=== PATIENT | male | born 1990 | race Caucasian/White ===

== ENCOUNTER 2021-11-18 23:37 | Emergency (ER) | payer MEDICARE, MEDICAID, SELFPAY ==
[2021-11-18 23:44] VITALS: BP 141/79; PULSE 88; RESP 18; TEMP 36.7; O2SAT 100; BMI 32.1
--- NOTE | 2021-11-18 23:49 | ED.C_ITS ---
HPI - Psych General: Chief Complaint: Psychiatric Symptoms Stated Complaint: needs to see someone about his schizophrenia Time Seen by Provider: 11/18/21 23:49 History of Present Illness: 31-year-old male patient comes in today for concerns of intrusive thoughts. Patient reports he does not feel homicidal or suicidal, but does have intrusive thoughts where he feels like he might punch somebody or stab someone with a knife. It has been several days since patient's had a thought like this. Patient reports that these thoughts are often reoccurring but he has been able to control them. Patient at this time is living in a fdc and is to start going to group sessions at [facility] for substance abuse disorder. Patient is waiting to get into [facility] to see a psychiatrist and counselor. Patient does have an appointment to see a substance abuse counselor on . Patient has medication to he takes routinely and is not out of his medicine. Review of Systems General: Reports: 10 or more systems reviewed and unremarkable except in HPI and below Psych: Reports: anxiety PFSH ED PFSH: Medical History (Updated 11/19/21 @ 00:04 by ALPHONSE Sandhu) Psychiatric care Physical Exam Const: COMMON NORMALS: alert GENERAL APPEARANCE: well kempt HENMT: COMMON NORMALS: normocephalic HEAD & SCALP: normocephalic Neck/C-Spine: COMMON NORMALS: full ROM Resp: COMMON NORMALS: normal respiratory effort Neuro: SENSORIUM/ORIENTATION: Yes alert Psych: COMMON NORMALS: speech normal APPEARANCE: Yes well kempt ATTITUDE: Yes calm ACTIVITY/MOTOR BEHAVIOR: Yes appropriate eye contact SPEECH: Yes normal speech MOOD & AFFECT: Yes euthymic mood THOUGHT PROCESS: Circumstantial thought process present THOUGHT CONTENT: No Suicidality present and No Homicidality present ATTENTION/CONCENTRATION: Yes attention grossly intact INSIGHT: Good insight present (Psych) JUDGEMENT: Good judgement present (Psych) Course Vital Signs: Vital signs: Vital Signs Temperature 98.1 F 11/18/21 23:44 Pulse Rate 88 11/18/21 23:44 Respiratory Rate 18 11/18/21 23:44 Blood Pressure 141/79 11/18/21 23:44 Pulse Oximetry 100 11/18/21 23:44 Oxygen Delivery Me thod 11/18/21 23:44 MDM - Psych Medical Decision Making Patient came in today for concerns of occasional intrusive thoughts. Patient reports thoughts of wanting to stab somebody or hit somebody occurs at times. Patient had thoughts several days ago of this type of aggression. Patient denies any thoughts today but wanted to talk to somebody regarding these thoughts. Patient has recently moved to the area from [facility] to attend substance abuse counseling at [facility]. On exam patient is alert and oriented. Patient is calm and cooperative. Patient carries himself very well. Patient denies any homicidal suicidal thoughts. Differential diagnosis includes schizophrenia, acute anxiety, malingering. Patient is not having any current thoughts regarding aggression towards other people or stabbing other people. Patient is does have medication and is currently taking his medicine. I am going to request case management to assist patient with moving up his [facility] appointment so he can hopefully get into see a counselor sooner than December 20. Patient will continue with his treatment program at [facility] for substance abuse. Patient was agreeable to this plan and does understand that he can return if he becomes more aggressive or feels like the thoughts become out of control. Discharge Plan Discharge Patient Disposition: Home Clinical Impression: Anxiety, Chronic schizophrenia Condition: Stable Discharge Orders: Discharge ED (Routine); Ordered 11/19/21 Ordered By: Ernie Tyler Patient Instructions: Schizophrenia (ED) Activity Restrictions/Additional Instructions: Home and rest. Continue with routine medication. Case management will contact you Sunday regarding [facility] follow-up for counseling. Return to the ER for worsening symptoms or new concerns. Coding Level of Care Code ED Assurance Manager for Burt Fernandez
== END 2021-11-19 00:43 | disposition home or self-care (01) ==
PROVIDERS: Emergency Provider Nurse Practitioner Family
DX: F41.9 Anxiety disorder, unspecified (principal); F20.9 Schizophrenia, unspecified
CPT/HCPCS: 99283

== ENCOUNTER → 2021-12-08 14:08 | Outpatient (BNVA) | payer MEDICARE, MEDICAID, SELFPAY | PROVIDERS: PCP Family Medicine; Visit Provider Family Medicine | DX: E78.00 Pure hypercholesterolemia, unspecified (principal); F20.9 Schizophrenia, unspecified; F42.9 Obsessive-compulsive disorder, unspecified; R03.0 Elevated blood-pressure reading, without diagnosis of hypertension | CPT/HCPCS: 80053; 80061; 85025 ==

== ENCOUNTER 2022-01-30 18:31 | Emergency (ER) | payer MEDICARE, MEDICAID, SELFPAY ==
[2022-01-30 18:54] VITALS: BP 134/81; PULSE 87; RESP 15; TEMP 36.7; O2SAT 96
--- NOTE | 2022-01-30 19:02 | ECG_ITS ---
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 Measurements Intervals [place] Rate: 87 P: -23 NM: 156 QRS: -21 QRSD: 92 T: 148 QT: 342 QTc: 412 Interpretive Statements SINUS RHYTHM POSSIBLE LEFT ATRIAL ENLARGEMENT [-0.1mV P-WAVE IN V1/V2] BORDERLINE LEFT AXIS DEVIATION [QRS AXIS < -20] NONSPECIFIC T-WAVE ABNORMALITY No previous ECG available for comparison Electronically Signed On 01-31-2022 17:47:57 ANODE ADJUSTER by Edgar Arguelles M.D. [id number]
--- NOTE | 2022-01-30 19:17 | ECG_ITS ---
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 Measurements Intervals [place] Rate: 66 P: 36 NE: 167 QRS: 25 QRSD: 102 T: 38 QT: 384 QTc: 405 Interpretive Statements SINUS RHYTHM No previous ECG available for comparison Electronically Signed On 01-30-2022 19:46:34 TABLEAU ARCHITECT by Edgar Arguelles M.D. [email or web address].[email or web address]/store/OM/[id number]
--- NOTE | 2022-01-30 19:17 | W.ED.CHESTPA ---
HPI - Chest Pain General: Chief Complaint: Chest Pain Stated Complaint: chest pain Time Seen by Provider: 01/30/22 19:00 History of Present Illness: Patient comes in with chest pain. He describes it as left-sided pressure off and on for the past couple months. Denies any cardiac history. Does have a remote history of drug and alcohol abuse, however states has been clean for the past 6 months. Associated symptoms: Deny abdominal pain, dyspnea, fever(s), nausea, palpitations or vomiting Review of Systems Const: Denies: fever(s) or body aches Eyes: Denies: change in vision or blurry vision ENMT: Denies: throat pain or odynophagia Card: Reports: chest pain; Denies: palpitations Resp: Denies: dyspnea or productive cough GI: Denies: abdominal pain, nausea or vomiting : Denies: flank pain or dysuria Musc: Denies: neck pain or back pain Skin/Breast: Denies: rash or pruritus Neuro: Denies: headache(s) or numbness in extremities Psych: Denies: anxiety or change in appetite Endo: Denies: polyuria or excessive sweating PFSH ED PFSH: Medical History Psychiatric care Schizophrenia Substance abuse in remission Surgical History [place] teeth removed Family History Mother Psychiatric illness OCD, bipolar disorder, paranoid schizophrenia Grandfather Stroke Other Hypertension Denies family history of Diabetes CAD (coronary artery disease) Clotting disorder Dementia Hyperlipidemia Chronic kidney disease (CKD) Anesthesia complication Bleeding disorder Cancer Social History (Updated 01/18/22 @ 11:15 by Lily German LPN) Smoking and tobacco status: light tobacco smoker (1-1.5ppd) e-cigarettes E-Cigarette Details: vaporizer device and with nicotine E-cig/vape details: 60 ml/2-3 days. Quit status (tobacco): quit date established Planned quit date: 02/10/22 Second hand smoke exposure: Yes Smoking risk assessment/counseling performed?: No Alcohol intake: former Year of sobriety/quit date alcohol: 2021 Former alcohol use details: Former alcoholic, last drink 09/02. Desire information about alcohol rehabilitation?: No Counseling given: No Desire information about substance/drug rehabilitation?: No Counseling given: No Other details last substance use: last use 09/02. Meth, MJ, fentanyl, opioids Adopted: No Caregiver/support person: No Lives independently: Yes Marital status: Single Current occupational status: unemployed Current gender identity: Male Physical Exam Const: COMMON NORMALS: no acute distress, patient oriented x3, healthy appearing and alert HENMT: COMMON NORMALS: normocephalic and atraumatic HEAD & SCALP: normocephalic and atraumatic Eye: COMMON NORMALS: Equal, round and reactive pupils present and EOMs intact bilaterally PUPIL: Yes Equal, round and reactive pupils present Neck/C-Spine: COMMON NORMALS: full ROM and supple Resp: COMMON NORMALS: normal respiratory effort, No retractions and No use of accessory muscles Cardio: COMMON NORMALS: regular rate and regular rhythm RATE: regular rate RHYTHM: regular rhythm GI: COMMON NORMALS: Normal to inspection, nondistended, normoactive bowel sounds present, Soft to palpation and non-tender PALPATION: Yes Soft to palpation Back/Pelvis: COMMON NORMALS: thoracic and lumbar spine normal to inspection and no thoracic nor lumbar tenderness Extremity: COMMON NORMALS: normal to inspection and full ROM Neuro: COMMON NORMALS: patient oriented x3 SENSORIUM/ORIENTATION: Yes alert Psych: COMMON NORMALS: mental status grossly normal and cooperative Skin: COMMON NORMALS: no rashes or lesions noted and no wounds GENERAL SKIN EXAM: no rashes or lesions noted Course Vital Signs: Vital signs: Vital Signs Temperature 98.1 F 01/30/22 18:54 Pulse Rate 74 01/30/22 19:23 Respiratory Rate 14 01/30/22 19:23 Blood Pressure 131/73 01/30/22 19:23 Pulse Oximetry 97 01/30/22 19:23 Oxygen Delivery Me thod 01/30/22 19:23 MDM - Chest Pain Medical Decision Making Patient comes in with chest pain. He describes it as left-sided pressure off and on for the past couple months. Denies any cardiac history. Does have a remote history of drug and alcohol abuse, however states has been clean for the past 6 months. Physical exam is unremarkable. Will check EKG, labs, and reassess. On reassessment I talked to the patient about the test results. Will discharge home at this time with precautions to return for worsening or changing symptoms. Lab Data 01/30/22 19:42 01/30/22 19:42 Laboratory Results WBC 7.4 10^3/uL (4.0-10.0) 01/30/22 19:42 RBC 4.78 10^6/uL (4.1-5.3) 01/30/22 19:42 Hgb 14.9 g/dL (11.7-16.6) 01/30/22 19:42 Hct 43.8 % (42.0-52.0) 01/30/22 19:42 MCV 91.6 fl (80-94) 01/30/22 19:42 MCH 31.2 pg (28.0-34.0) 01/30/22 19:42 MCHC 34.0 g/dL (30.0-36.0) 01/30/22 19:42 RDW 12.5 % (12.1-15.1) 01/30/22 19:42 Plt Count 368 10^3/cmm (130-400) 01/30/22 19:42 MPV 10.9 fL (7.4-10.4) H 01/30/22 19:42 Neut % (Auto) 46.4 % 01/30/22 19:42 Lymph % (Auto) 44.6 % 01/30/22 19:42 [place] % (Auto) 7.1 % 01/30/22 19:42 Eos % (Auto) 1.1 % 01/30/22 19:42 Baso % (Auto) 0.5 % 01/30/22 19:42 Neut # (Auto) 3.44 10^3/uL (1.8-7.7) 01/30/22 19:42 Lymph # (Auto) 3.3 10^3/uL (0.8-4.8) 01/30/22 19:42 [place] # (Auto) 0.5 10^3/uL (0.2-0.9) 01/30/22 19:42 Eos # (Auto) 0.1 10^3/uL (0.0-0.8) 01/30/22 19:42 Baso # (Auto) 0.0 10^3/uL (0.0-0.1) 01/30/22 19:42 Nucleated RBC % (auto) 0 % 01/30/22 19:42 Nucleated RBCs # 0.0 /100WBC 01/30/22 19:42 Sodium 139 mmol/L (136-145) 01/30/22 19:42 Potassium 3.6 mmol/L (3.5-5.1) 01/30/22 19:42 Chloride 107 mmol/L (98-107) 01/30/22 19:42 Carbon Dioxide 22 mmol/L (22-29) 01/30/22 19:42 Anion Gap 13.6 (5-19) 01/30/22 19:42 BUN 15 mg/dL (6-20) 01/30/22 19:42 Creatinine 0.9 mg/dL (0.7-1.2) 01/30/22 19:42 GFR Calculation 99.8 mL/min (90-130) 01/30/22 19:42 Glucose 98 mg/dL (65-115) 01/30/22 19:42 Calculated Osmolality 289 mOsm/kg (285-295) 01/30/22 19:42 Calcium 9.3 mg/dL (8.5-10.5) 01/30/22 19:42 Total Bilirubin 0.5 mg/dL (0.15-1.2) 01/30/22 19:42 AST 27 U/L (0-40) 01/30/22 19:42 ALT 32 U/L (0-41) 01/30/22 19:42 Alkaline Phosphatase 122 U/L (40-130) 01/30/22 19:42 Troponin T Baseline 10 ng/L (0-15) 01/30/22 19:42 Total Protein 7.2 g/dL (6.6-8.7) 01/30/22 19:42 Albumin 4.6 g/dL (3.5-5.2) 01/30/22 19:42 Globulin 2.6 g/dL (1.3-4.6) 01/30/22 19:42 Discharge Plan Discharge Patient Disposition: Home Clinical Impression: Nonspecific chest pain Condition: Stable Prescriptions: No Action sertraline [Zoloft] 100 mg tablet 100 mg PO DAILY Qty: 30 2RF olanzapine 20 mg tablet 20 mg PO .at bedtime Qty: 30 2RF gabapentin 300 mg capsule 300 mg PO TID Qty: 90 2RF mirtazapine [Remeron] 15 mg tablet 15 mg PO .at bedtime Qty: 30 2RF Preparation H Maximum Strength 0.25-1 % cream 1 applic RI TID 14 Days Qty: 51 0RF gemfibrozil 600 mg tablet 600 mg PO BID Qty: 180 2RF aripiprazole [Abilify] 30 mg tablet 30 mg PO DAILY Qty: 30 2RF Discharge Orders: Discharge ED (Routine); Ordered 01/30/22 Ordered By: Mark Bell Referrals: Loco Bond MD [Primary Care Provider] - Coding Level of Care Code ED Experimental Mechanic Spacecraft for Chg Fwd Exam Comprehensive
[2022-01-30 19:23] VITALS: BP 131/73; PULSE 74; RESP 14; O2SAT 97
[2022-01-30 19:51] LABS: Basophils % 0.5 %; Eosinophils # 0.1 10^3/uL (0.0-0.8); Eosinophils % 1.1 %; Hematocrit 43.8 % (42.0-52.0); Hemoglobin 14.9 g/dL (11.7-16.6); Lymphocytes # 3.3 10^3/uL (0.8-4.8); Lymphocytes % 44.6 %; Mean Corpuscular Hemoglobin 31.2 pg (28.0-34.0); Mean Corpuscular Volume 91.6 fl (80-94); Mean Platelet Volume 10.9 fL (7.4-10.4); Monocytes # 0.5 10^3/uL (0.2-0.9); Monocytes % 7.1 %; Neutrophils # 3.44 10^3/uL (1.8-7.7); Neutrophils % 46.4 %; Nucleated Red Blood Cells % 0 %; Platelet Count 368 10^3/cmm (130-400); Red Blood Count 4.78 10^6/uL (4.1-5.3); Red Cell Distribution Width 12.5 % (12.1-15.1); White Blood Count 7.4 10^3/uL (4.0-10.0)
[2022-01-30 20:16] LABS: Troponin(5th) Baseline 10 ng/L (0-15)
[2022-01-30 20:18] LABS: Alanine Aminotransferase 32 U/L (0-41); Albumin Level 4.6 g/dL (3.5-5.2); Alkaline Phosphatase 122 U/L (40-130); Aspartate Amino Transferase 27 U/L (0-40); Blood Urea Nitrogen 15 mg/dL (6-20); Calcium 9.3 mg/dL (8.5-10.5); Carbon Dioxide 22 mmol/L (22-29); Globulin 2.6 g/dL (1.3-4.6); Glomerular Filtration Rate 99.8 mL/min (90-130); Glucose 98 mg/dL (65-115); Total Bilirubin 0.5 mg/dL (0.15-1.2); Total Protein 7.2 g/dL (6.6-8.7)
[2022-01-30 20:27] LABS: Osmolality Calculated 289 mOsm/kg (285-295); Sodium 139 mmol/L (136-145)
--- NOTE | 2022-01-30 21:04 | ECG_ITS ---
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 Measurements Intervals [place] Rate: 65 P: 38 MN: 170 QRS: 25 QRSD: 97 T: 32 QT: 395 QTc: 412 Interpretive Statements SINUS RHYTHM Compared to ECG 01/30/2022 19:17:35 No significant changes Electronically Signed On 01-31-2022 17:55:45 SANDER PORTABLE MACHINE by Edgar Arguelles M.D. [email or web address]/store/OM/[id number]
[2022-01-30 21:05] LABS: Potassium 3.6 mmol/L (3.5-5.1)
[2022-01-30 21:06] LABS: Anion Gap 13.6 (5-19); Chloride 107 mmol/L (98-107)
[2022-01-30 22:40] LABS: Troponin 5 2HR 8.51 ng/L (0-15)
[2022-01-30 22:52] VITALS: BP 130/80; PULSE 85; RESP 15; O2SAT 96
[2022-01-30 23:35] LABS: Troponin 5 2HR Delta -1.49 ABS# (0-10)
== END 2022-01-30 23:02 | disposition home or self-care (01) ==
PROVIDERS: Emergency Provider Emergency Medicine; PCP Family Medicine
DX: R07.89 Other chest pain (principal); F17.210 Nicotine dependence, cigarettes, uncomplicated
CPT/HCPCS: 80053; 84484; 85025; 93005; 99285

== ENCOUNTER 2022-05-17 17:41 | Emergency (ER) | payer MEDICARE, MEDICAID, SELFPAY ==
[2022-05-17 18:19] VITALS: BMI 35.2
[2022-05-17 18:22] VITALS: BP 138/79; PULSE 78; RESP 18; TEMP 36.6; O2SAT 98
--- NOTE | 2022-05-17 19:37 | W.ED.GENADLT ---
HPI - General Adult General: Chief complaint: General Medical Stated complaint: drug abuse/wants detox Time Seen by Provider: 05/17/22 19:09 Source: patient Mode of arrival: ambulatory Limitations: no limitations History of Present Illness: Patient is a nice 31-year-old male who presents to ED today requesting medical admission for methamphetamine detox. Patient states he relapsed from methamphetamine approximately a week ago and would like to detox. Prior to relapsing he had had several months of sobriety. He states his only symptoms currently are some insomnia and nausea. Patient is not suicidal. He states his mental health has actually been doing really well . Onset (ago): day(s) Associated symptoms: Reports nausea; Deny chest pain, confusion, dyspnea, headache(s), malaise, rash or vomiting Treatments prior to arrival: none Review of Systems Const: Denies: fever(s), chills, body aches, fatigue or malaise Eyes: Denies: change in vision Card: Denies: chest pain Resp: Denies: dyspnea GI: Reports: nausea; Denies: abdominal pain, vomiting or change in bowel habits Musc: Denies: neck pain, back pain, extremity pain or joint pain Skin/Breast: Denies: rash Neuro: Denies: headache(s), numbness in extremities, weakness in extremities, sensory changes, lack of coordination, difficulty walking, dizziness, confusion, behavioral changes, Slurred speech present, difficulty communicating thoughts or seizure-like activity [facility] ED PFSH: Medical History Psychiatric care Schizophrenia Substance abuse in remission Surgical History [place] teeth removed Family History Mother Psychiatric illness OCD, bipolar disorder, paranoid schizophrenia Grandfather Stroke Other Hypertension Denies family history of Diabetes CAD (coronary artery disease) Clotting disorder Dementia Hyperlipidemia Chronic kidney disease (CKD) Anesthesia complication Bleeding disorder Cancer Social History Smoking and tobacco status: light tobacco smoker (1-1.5ppd) e-cigarettes E-Cigarette Details: vaporizer device and with nicotine E-cig/vape details: 60 ml/2-3 days. Quit status (tobacco): quit date established Planned quit date: 02/10/22 Second hand smoke exposure: Yes Smoking risk assessment/counseling performed?: No Alcohol intake: former Year of sobriety/quit date alcohol: 2021 Former alcohol use details: Former alcoholic, last drink 09/02. Desire information about alcohol rehabilitation?: No Counseling given: No Desire information about substance/drug rehabilitation?: No Counseling given: No Other details last substance use: last use 09/02. Meth, MJ, fentanyl, opioids Adopted: No Caregiver/support person: No Lives independently: Yes Marital status: Single Current occupational status: unemployed Current gender identity: Male Physical Exam Const: COMMON NORMALS: no acute distress, average body habitus, patient oriented x3, no limitations, healthy appearing, alert and well nourished ORIENTATION/CONSCIOUSNESS: Yes awake, Yes oriented to person, Yes oriented to place and Yes oriented to time Resp: COMMON NORMALS: normal respiratory effort and clear to auscultation bilaterally AUSCULTATION: clear to auscultation bilaterally Cardio: COMMON NORMALS: regular rate and regular rhythm RATE: regular rate RHYTHM: regular rhythm Neuro: ZHANG COMA SCALE: document GCS findings Zhang coma scale eye opening: Spontaneous Zhang coma scale verbal response: Orientated Waldo coma scale motor response: Obey commands Waldo coma scale total score: 15 COMMON NORMALS: patient oriented x3 SENSORIUM/ORIENTATION: Yes alert, Yes oriented to person, Yes oriented to place and Yes oriented to time Psych: COMMON NORMALS: mental status grossly normal, Normal thought process present, cooperative, normal affect, speech normal, activity/motor behavior normal, denies hallucinations, denies homicidal ideation and denies suicidal ideation SPEECH: Yes normal speech THOUGHT PROCESS: Normal thought process present Course Vital Signs: Vital signs: Vital Signs Temperature 97.9 F 05/17/22 18:22 Pulse Rate 78 05/17/22 18:22 Respiratory Rate 18 05/17/22 18:22 Blood Pressure 138/79 05/17/22 18:22 Pulse Oximetry 98 05/17/22 18:22 Oxygen Delivery Me thod 05/17/22 18:22 MDM - General Adult Medical Decision Making There is nothing to warrant a medical admission for methamphetamine detox at this time. Vital signs are perfect. We did try to contact [facility] on their after hours line but was unsuccessful. Patient was given their name and number and can contact them tomorrow morning to inquire about bed availability. Patient states he has had rehabilitation at another facility in a different city-he states he will also contact them in regards to availability. Return to ED precautions given. Discharge Plan Discharge Patient Disposition: Home Clinical Impression: Episodic methamphetamine abuse Condition: Stable Prescriptions: No Action ondansetron 8 mg tablet,disintegrating 8 mg PO Q8H PRN (Reason: nausea and vomiting) 5 Days Qty: 15 0RF Preparation H Maximum Strength 0.25-1 % cream 1 applic IN TID 14 Days Qty: 51 0RF aripiprazole [Abilify] 30 mg tablet 30 mg PO DAILY Qty: 30 2RF gabapentin 300 mg capsule 300 mg PO TID Qty: 90 2RF mirtazapine [Remeron] 15 mg tablet 15 mg PO .at bedtime Qty: 30 2RF olanzapine 20 mg tablet 20 mg PO .at bedtime Qty: 30 2RF sertraline [Zoloft] 100 mg tablet 100 mg PO DAILY Qty: 30 2RF gemfibrozil 600 mg tablet 600 mg PO BID Qty: 180 2RF Discharge Orders: Discharge ED (Routine); Ordered 05/17/22 Ordered By: Virgie Desai Referrals: Loco Bond MD [Primary Care Provider] - Patient Instructions: Methamphetamine Abuse Activity Restrictions/Additional Instructions: [facility] [address], [place] [address] Coding Level of Care Code ED Senior Product Development Manager for Burt Fernandez
== END 2022-05-17 20:21 | disposition home or self-care (01) ==
PROVIDERS: Emergency Provider Physician Assistant; PCP Family Medicine
DX: F15.10 Other stimulant abuse, uncomplicated (principal); F17.210 Nicotine dependence, cigarettes, uncomplicated; F17.290 Nicotine dependence, other tobacco product, uncomplicated
CPT/HCPCS: 99282

== ENCOUNTER → 2022-10-15 12:48 | Outpatient (BNVA) | payer MEDICARE, MEDICAID, OTHER, SELFPAY | PROVIDERS: PCP Family Medicine; Visit Provider Family Medicine | DX: R05.9 Cough, unspecified (principal) | CPT/HCPCS: 87426 ==

== ENCOUNTER → 2022-10-31 13:24 | Outpatient (BNVA) | payer MEDICARE, MEDICAID, OTHER, SELFPAY | PROVIDERS: PCP Family Medicine; Visit Provider Psychiatry & Neurology Psychiatry | DX: E78.00 Pure hypercholesterolemia, unspecified (principal); Z79.899 Other long term (current) drug therapy; F20.9 Schizophrenia, unspecified; F10.21 Alcohol dependence, in remission; F11.21 Opioid dependence, in remission; F60.3 Borderline personality disorder; F15.21 Other stimulant dependence, in remission; F12.21 Cannabis dependence, in remission; F42.9 Obsessive-compulsive disorder, unspecified | CPT/HCPCS: 80053; 80061; 83036 ==

== ENCOUNTER → 2023-12-01 16:31 | Outpatient (BNVA) | payer MEDICARE, MEDICAID, OTHER, SELFPAY | PROVIDERS: PCP Family Medicine; Visit Provider Family Medicine | DX: J06.9 Acute upper respiratory infection, unspecified (principal); R05.9 Cough, unspecified | CPT/HCPCS: 87400; 87426 ==

== ENCOUNTER → 2024-01-18 15:07 | Outpatient (BNVA) | payer MEDICARE, MEDICAID, SELFPAY | PROVIDERS: PCP Family Medicine; Visit Provider Family Medicine | DX: E78.00 Pure hypercholesterolemia, unspecified (principal) | CPT/HCPCS: 80053; 80061; 85025 ==

== ENCOUNTER 2024-05-25 14:11 | Emergency (ER) | payer MEDICARE, MEDICAID, SELFPAY ==
[2024-05-25 14:15] VITALS: BP 141/87; PULSE 57; RESP 16; TEMP 36.6; O2SAT 99; BMI 36.6
[2024-05-25 14:37] LABS: Basophils % 0.4 %; Eosinophils # 0.1 10^3/uL (0.0-0.8); Eosinophils % 0.5 %; Hematocrit 43.7 % (37-53); Lymphocytes # 1.5 10^3/uL (0.8-4.8); Lymphocytes % 14.9 %; Mean Corpuscular HGB Conc 34.1 g/dL (30-55); Mean Corpuscular Hemoglobin 30.9 pg (27-33); Mean Corpuscular Volume 90.7 fl (82-101); Monocytes # 0.6 10^3/uL (0.2-0.9); Monocytes % 5.8 %; Neutrophils # 7.86 10^3/uL (1.8-7.7); Neutrophils % 78.2 %; Nucleated Red Blood Cells % 0 %; Platelet Count 294 10^3/cmm (157-399); Red Blood Count 4.82 10^6/uL (3.85-5.65); Red Cell Distribution Width 13.2 % (12.1-15.1); White Blood Count 10.05 10^3/uL (3.29-11.43)
[2024-05-25 14:53] LABS: Alanine Aminotransferase 18 U/L (0-41); Albumin Level 4.6 g/dL (3.5-5.2); Alkaline Phosphatase 92 U/L (40-130); Anion Gap 14.7 (5-19); Aspartate Amino Transferase 20 U/L (0-40); Blood Urea Nitrogen 17 mg/dL (6-20); Calcium 8.8 mg/dL (8.5-10.5); Carbon Dioxide 19 mmol/L (22-29); Chloride 111 mmol/L (98-107); Creatinine Clr Calc Pharmacy 111.2685; Globulin 2.5 g/dL (1.3-4.6); Glomerular Filtration Rate 64.4 mL/min (90-130); Glucose 130 mg/dL (65-115); Lipase 19 U/L (13-60); Osmolality Calculated 295 mOsm/kg (285-295); Potassium 3.7 mmol/L (3.5-5.1); Sodium 141 mmol/L (136-145); Total Bilirubin 0.7 mg/dL (0.15-1.2); Total Protein 7.1 g/dL (6.6-8.7)
--- NOTE | 2024-05-25 15:07 | CTR_ITS ---
PROCEDURE INFORMATION: Exam: CT Abdomen And Pelvis Without Contrast Exam date and time: 05/25/2024 3:16 PM Age: 33 years old Clinical indication: Abdominal pain; Flank; Right; Additional info: Right flank pain TECHNIQUE: Imaging protocol: Computed tomography of the abdomen and pelvis without contrast. Radiation optimization: All CT scans at this facility use at least one of these dose optimization techniques: automated exposure control; mA and/or kV adjustment per patient size (includes targeted exams where dose is matched to clinical indication); or iterative reconstruction. COMPARISON: No relevant prior studies available. RADIATION DOSE METRICS: Total DLP (mGy-cm): 1008.23 FINDINGS: Lungs: Subsegmental bibasilar atelectasis. The visualized lung bases are otherwise clear. Diaphragm: No evidence of diaphragmatic defect. Liver: No evidence of focal hepatic lesion within limitation of a noncontrast exam. Gallbladder and biliary ducts: Gallbladder is unremarkable. No evidence of intra-hepatic or extra-hepatic biliary dilatation. Pancreas: Grossly unremarkable. Spleen: Grossly unremarkable. Adrenal glands: Grossly unremarkable. Kidneys and ureters: Very mild right-sided hydronephrosis secondary to a partially obstructive 1 mm distal ureteral stone (image 55 of series 6). No left-sided hydronephrosis or ureteral stone. There are punctate nonobstructive renal stones bilaterally as well. Stomach and bowel: No evidence of bowel obstruction or perienteric inflammatory changes. Appendix: Normal appendix. Intraperitoneal space: No evidence of free air or fluid collection. Vasculature: No evidence of aneurysmal dilitation of abdominal aorta. Lymph nodes: No evidence of adenopathy. Urinary bladder: Grossly unremarkable. Reproductive: Grossly unremarkable. Bones/joints: No evidence of acute fracture or aggresive osseous lesion. Soft tissues: No evidence of fluid collection or hematoma in the superficial soft tissues. There is superficial soft tissue edema of both buttocks. Trace hemorrhage and air in the right buttock subcutaneous soft tissues, possibly reflecting an injection site. CT/CT kidney stone [id number] IMPRESSION: 1. Very mild right-sided hydronephrosis secondary to a partially obstructive 1 mm distal ureteral stone.
--- NOTE | 2024-05-25 15:09 | ED_ITS ---
HPI - Abdominal Pain 2 General: Chief Complaint: Abdominal Pain Stated Complaint: abdominal pains Time Seen by Provider: 05/25/24 14:50 Source: patient Mode of arrival: ambulatory Limitations: no limitations History of Present Illness: 33-year-old male states been having righ t flank pain it has been going on since this morning. States very sharp pain rates it a 9 out of 10 had a history of kidney stones and feels similar. Has had some nausea denies any vomiting denies any fever denies any worse improving factors. Associated Symptoms: Denies chills, diarrhea, fever(s), nausea and vomiting Related Data Previous Rx's ?Medication ?Instructions ?Recorded naltrexone microspheres 380 mg 380 mg IM .monthly #1 e a 11/22/23 intramuscular suspension,extended release (Vivitrol) acamprosate 333 mg tablet,delayed 666 mg (2 x 333 mg) PO TID #180 02/22/24 release tabs aripiprazole 30 mg tablet (Abilify) 30 mg PO DAILY #30 tabs 02/22/24 mirtazapine 15 mg tablet (Remeron) 15 mg PO .at bedtim e #30 tabs 02/22/24 olanzapine 20 mg tablet 20 mg PO .at bedtime #30 tab s 02/22/24 sertraline 100 mg tablet (Zoloft) 100 mg PO DAILY #30 tabs 02/22/24 topiramate 100 mg tablet (Topamax) 100 mg PO .HS #30 t abs 02/22/24 gemfibrozil 600 mg tablet 600 mg PO BID #180 tabs 03/1625 hydrocodone 5 mg-acetaminophen 325 1 tab PO Q6H PRN pa in #14 tabs 05/25/24 mg tablet ondansetron 4 mg disintegrating 4 mg PO Q6H PRN nausea and 05/25/24 tablet vomiting #14 tabs Allergies Allergy/AdvReac Type Severity Reaction Status Date / Time [facility] AdvReac Severe ADR-Anxiety Verified 05/22/24 14:47 risperdone AdvReac Severe ADR-Halluci Uncoded 05/22/24 14:47 nating Review of Systems 2 Const: Denies: fever(s), chills, body aches or change in appetite ENMT: Denies: throat pain or dental pain Card: Denies: chest pain Resp: Denies: dyspnea GI: Denies: abdominal pain, nausea, vomiting or diarrhea : Reports: flank pain Musc: Denies: neck pain or back pain Skin/Breast: Denies: rash Neuro: Denies: headache(s) PFSH ED 2 PFSH: Medical History Substance abuse in remission Schizophrenia Psychiatric care Surgical History Negley teeth removed Family History Mother Psychiatric illness OCD, bipolar disorder, paranoid schizophrenia Grandfather Stroke Other Hypertension Denies family history of Diabetes CAD (coronary artery disease) Clotting disorder Dementia Hyperlipidemia Chronic kidney disease (CKD) Anesthesia complication Bleeding disorder Cancer Social History Smoking and tobacco/nicotine status: current every day tobacco/nicotine user e- cigarettes E-Cigarette Details: vaporizer device and with nicotine E-cig/vape details: 60 ml/2-3 days. 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-09/07/22 Substance/Drug Use: former Date of last use: Has been clean for 112 days- 09/07/22 Adopted: No Caregiver/support person: No Lives independently: Yes Marital status: Single Current occupational status: employed Current occupation: [employer] Current gender identity: Male Tory/Orthodoxy: Zoroastrianism Special tory needs: No Agree to transfusion: Yes Physical Exam 2 Const: COMMON NORMALS: no acute distress, patient oriented x3 and healthy appearing HENMT: COMMON NORMALS: normocephalic and atraumatic HEAD & SCALP: n ormocephalic and atraumatic Eye: COMMON NORMALS: conjunctivae normal CONJUNCTIVA: Yes conjunctivae normal Neck/C-Spine: COMMON NORMALS: full ROM and supple Chest: COMMONS NORMALS: normal inspection of the chest and normal palpation of entire chest wall Resp: COMMON NORMALS: normal respiratory effort, No retractions, No use of accessory muscles and clear to auscultation bilaterally AUSCULTATION: clear to auscultation bilaterally Cardio: COMMON NORMALS: regular rate, regular rhythm and No murmurs present (Cardio) RATE: regular rate RHYTHM: regular rhythm GI: COMMON NORMALS: Normal to inspection, nondistended, normoactive bowel sounds present, Soft to palpation, non-tender and no masses PALPATION: Yes Soft to palpation Extremity: COMMON NORMALS: normal to inspection and full ROM Neuro: COMMON NORMALS: patient oriented x3, moves all extremities and no focal motor deficits Psych: COMMON NORMALS: mental status grossly normal, Normal thought process present and cooperative THOUGHT PROCESS: Normal thought process present Skin: COMMON NORMALS: no rashes or lesions noted and no wounds GENERAL SKIN EXAM: no rashes or lesions noted Course 2 Vital Signs: Vital signs: Vital Signs Temperature 97.9 F 05/25/24 14:15 Pulse Rate 57 L 05/25/24 14:15 Respiratory Rate 18 05/25/24 16:10 Blood Pressure 141/87 05/25/24 14:15 Pulse Oximetry 99 05/25/24 14:15 Oxygen Delivery Me thod Room Air 05/25/24 14:15 MDM - Abdominal Pain Medical Decision Making Patient presents here with kidney stones pain is much improved here she barely passed stone is follow-up with PCP return if worsening he understands agrees to plan. Medical Records I reviewed the patient's medical records. Lab Data I reviewed the patient's lab results. 05/25/24 14:31 05/25/24 14:31 Labs/Radiology: Radiology Impressions Abdomen/Pelvis CT 05/25/24 15:07 IMPRESSION: 1. Very mild right-sided hydronephrosis secondary to a partially obstructive 1 mm distal ureteral stone. Laboratory Results WBC 10.05 10^3/uL (3.29-11.43) 05/25/24 14:31 RBC 4.82 10^6/uL (3.85-5.65) 05/25/24 14:31 Hgb 14.90 g/dL (11.27-16.99) 05/25/24 14:31 Hct 43.7 % (37-53) 05/25/24 14:31 MCV 90.7 fl (82-101) 05/25/24 14:31 MCH 30.9 pg (27-33) 05/25/24 14: MCHC 34.1 g/dL (30-55) 05/25/24 14:31 RDW 13.2 % (12.1-15.1) 05/25/24 14:31 Plt Count 294 10^3/cmm (157-399) 05/25/24 14: MPV 11.0 fL (7.4-10.4) H 05/25/24 14:31 Neut % (Auto) 78.2 % 05/25/24 14: Lymph % (Auto) 14.9 % 05/25/24 14: [place] % (Auto) 5.8 % 05/25/24 14:31 Eos % (Auto) 0.5 % 05/25/24 14:31 Baso % (Auto) 0.4 % 05/25/24 14: Neut # (Auto) 7.86 10^3/uL (1.8-7.7) H 05/25/24 14: Lymph # (Auto) 1.5 10^3/uL (0.8-4.8) 05/25/24 14: [place] # (Auto) 0.6 10^3/uL (0.2-0.9) 05/25/24 14:31 Eos # (Auto) 0.1 10^3/uL (0.0-0.8) 05/25/24 14:31 Baso # (Auto) 0.0 10^3/uL (0.0-0.1) 05/25/24 14: Nucleated RBC % (auto) 0 % 05/25/24 14: Nucleated RBCs # 0.0 /100WBC 05/25/24 14:31 Sodium 141 mmol/L (136-145) 05/25/24 14:31 Potassium 3.7 mmol/L (3.5-5.1) 05/25/24 14: Chloride 111 mmol/L (98-107) H 05/25/24 14:31 Carbon Dioxide 19 mmol/L (22-29) L 05/25/24 14:31 Anion Gap 14.7 (5-19) 05/25/24 14:31 BUN 17 mg/dL (6-20) 05/25/24 14:31 Creatinine 1.3 mg/dL (0.7-1.2) H 05/25/24 14:31 GFR Calculation 64.4 mL/min (90-130) L 05/25/24 14:31 Glucose 130 mg/dL (65-115) H 05/25/24 14:31 Calculated Osmolality 295 mOsm/kg (285-295) 05/25/24 14: Calcium 8.8 mg/dL (8.5-10.5) 05/25/24 14: Total Bilirubin 0.7 mg/dL (0.15-1.2) 05/25/24 14: AST 20 U/L (0-40) 05/25/24 14: ALT 18 U/L (0-41) 05/25/24 14: Alkaline Phosphatase 92 U/L (40-130) 05/25/24 14: Total Protein 7.1 g/dL (6.6-8.7) 05/25/24 14: Albumin 4.6 g/dL (3.5-5.2) 05/25/24 14: Globulin 2.5 g/dL (1.3-4.6) 05/25/24 14: Lipase 19 U/L (13-60) 05/25/24 14:31 Urine Color Yellow (Yellow) 05/25/24 15:04 Urine Appearance Clear (CLEAR) 05/25/24 15:04 Urine pH 6 (5-7) 05/25/24 15:04 Ur Specific Panther 1.020 (1.005-1.030) 05/25/24 15:04 Urine Protein Trace (Negative) H 05/25/24 15:04 Urine Glucose (UA) Norm (Normal) 05/25/24 15:04 Urine Ketones Negative (Negative) 05/25/24 15:04 Urine Blood 3+ (Negative) A 05/25/24 15:04 Urine Nitrate Negative (Negative) 05/25/24 15:04 Urine Bilirubin Neg (Negative) 05/25/24 15:04 Urine Urobilinogen Neg mg/dL (Negative) 05/25/24 15:04 Ur Leukocyte Esterase Trace (Negative) A 05/25/24 15:04 Urine RBC 21-50 /hpf (0-2) H 05/25/24 15:04 Urine WBC 11-20 /hpf (0-5) H 05/25/24 15:04 Ur Squamous Epith Cells 0-5 /hpf (0-5) 05/25/24 15:04 Amorphous Sediment Not Reportable 05/25/24 15:04 Urine Bacteria None seen /hpf (NONE) 05/25/24 15:04 Hyaline Casts 3.30 /lpf 05/25/24 15:04 All radiology interpretation(s) finalized by discharge Discharge Plan Discharge Patient Disposition: Home Clinical Impression: Kidney stone Condition: Stable Prescriptions: New hydrocodone-acetaminophen 5-325 mg tablet 1 tab PO Q6H PRN (Reason: pain) Qty: 14 0RF ondansetron 4 mg tablet,disintegrating 4 mg PO Q6H PRN (Reason: nausea and vomiting) Qty: 14 0RF No Action acamprosate 333 mg tablet,delayed release (DR/EC) 666 mg PO TID Qty: 180 11RF aripiprazole [Abilify] 30 mg tablet 30 mg PO DAILY Qty: 30 11RF mirtazapine [Remeron] 15 mg tablet 15 mg PO .at bedtime Qty: 30 11RF olanzapine 20 mg tablet 20 mg PO .at bedtime Qty: 30 11RF sertraline [Zoloft] 100 mg tablet 100 mg PO DAILY Qty: 30 11RF topiramate [Topamax] 100 mg tablet 100 mg PO .HS Qty: 30 11RF Vivitrol 380 mg suspension,extended rel recon 380 mg IM .monthly Qty: 1 11RF gemfibrozil 600 mg tablet 600 mg PO BID Qty: 180 0RF Discharge Orders: Discharge ED (Routine); Ordered 05/25/24 Ordered By: Santana Mejia Referrals: Loco Bond MD [Primary Care Provider] - 4-7 days Discharge Diet: Advance as tolerated Discharge Activity: Resume usual activity Patient Instructions: Kidney Stones (ED), Opioid Safety Print Language: Azeri Coding Level of Care Code ED Tax Compliance Agent for Burt Fernandez
[2024-05-25 15:19] LABS: Bacteria Urine None Seen /hpf; RBC Urine 21-50 /hpf (0-2); Squamous Epithelial Cell Urine 0-5 /hpf (0-5)
[2024-05-25 15:22] LABS: Add Urine Microscopic? YES; Bilirubin Urine Neg (Negative); Blood Urine 3+ (Negative); Glucose Urine UA Norm (Normal); Ketones Urine Negative (Negative); Leukocyte Esterase Urine Trace (Negative); Nitrate Urine Negative (Negative); Protein Urine Trace (Negative); Urine Appearance Clear (CLEAR); Urine Color Yellow (Yellow); Urobilinogen Urine Neg (Negative); pH Urine 6 (5-7)
[2024-05-25 15:31] LABS: Add Urine Culture? Yes
[2024-05-25 16:10] VITALS: RESP 18
[2024-05-25] MEDS: ketorolac 30 mg/mL INJ 15 MG IVP (16:10)
[2024-05-25] MEDS: morphine 4 mg/mL SDV 1 mL IVP (16:10)
[2024-05-25] MEDS: ondansetron 2 mg/ML SDV 2 mL 4 MG IVP (16:11)
[2024-05-25 16:27] VITALS: BP 152/97; PULSE 62; RESP 16; O2SAT 95
[2024-05-25 16:37] VITALS: BP 146/85; PULSE 68; RESP 16; O2SAT 98
== END 2024-05-25 16:35 | disposition home or self-care (01) ==
PROVIDERS: Emergency Provider Emergency Medicine; PCP Family Medicine
DX: N20.0 Calculus of kidney (principal); F17.290 Nicotine dependence, other tobacco product, uncomplicated
CPT/HCPCS: 36415; 74176; 80053; 81001; 83690; 85025; 87086; 96374; 96375; 99285; J1885; J2270; J2405

== ENCOUNTER → 2024-10-13 16:20 | Outpatient (BNVA) | payer MEDICARE, MEDICAID, OTHER, SELFPAY | PROVIDERS: PCP Family Medicine; Visit Provider Registered Nurse Neonatal Intensive Care | DX: Z20.822 Contact with and (suspected) exposure to COVID-19 (principal) | CPT/HCPCS: 87426 ==